=== PATIENT | male | born 1955 | race Caucasian/White ===

== ENCOUNTER → 2021-12-25 10:15 | Outpatient (CLI) | payer MEDICARE, BC, SELFPAY ==
[2021-12-25 12:14] LABS: Hematocrit 42.4 % (41-53); Hemoglobin 14.3 g/dL (13.5-17.5); Mean Corpuscular HGB Conc 33.8 % (30-36); Mean Corpuscular Hemoglobin 32.4 PG (26-34); Mean Corpuscular Volume 95.9 fL (80-100); Platelet Count 192 X10^3/uL (150-400); Red Blood Cell Count 4.42 X10^6/uL (4.5-5.9); Red Cell Distribution Width 13.6 % (11.6-14.8); White Blood Cell Count 3.9 X10^3/uL (4.5-11.0)
[2021-12-25 12:39] LABS: Alanine Aminotransferase 26 IU/L (<50); Albumin 4.1 g/dL (3.5-5.0); Albumin Globulin Ratio 1.3 (1.0-2.8); Alkaline Phosphatase 59 U/L (38-126); Aspartate Aminotransferase 36 IU/L (17-59); BUN Creatinine Ratio 12.8 (6-22); Blood Urea Nitrogen 14 mg/dL (9-20); Calcium 9.5 mg/dL (8.4-10.2); Carbon Dioxide 29 mmol/L (22-32); Chloride 105 mmol/L (98-107); Cholesterol 229 mg/dL (140-199); Estimated Glomerular Filt Rate > 60 mL/min (>60); Globulin 3.2 g/dL (1.7-4.1); Glucose 89 mg/dL (80-110); HDL Cholesterol 74 mg/dL (40-60); HEMOLYSIS < 15 (0-50); LDL Cholesterol Calculated 135 mg/dL (<100); Potassium 4.3 mmol/L (3.4-5.1); Sodium 141 mmol/L (137-145); Total Protein 7.3 g/dL (6.3-8.2); Triglycerides 101 mg/dL (35-150)
[2021-12-25 12:45] LABS: Free T3, Triiodothyronine Free 4.95 pg/mL (2.77-5.27); Free T4, Direct Thyroxine 1.11 ng/dL (0.78-2.19)
[2021-12-25 12:59] LABS: Thyroid Stimulating Hormone 2.69 uIU/mL (0.47-4.68)
[2021-12-26 17:23] LABS: Hep C Virus Ab w/Reflex Quant NEGATIVE s/c (NEGATIVE)
== END ==
PROVIDERS: Referring Provider Nurse Practitioner; Visit Provider Nurse Practitioner
DX: Z00.00 Encounter for general adult medical examination without abnormal findings (principal); Z11.59 Encounter for screening for other viral diseases; Z12.5 Encounter for screening for malignant neoplasm of prostate
CPT/HCPCS: 36415; 80053; 80061; 84439; 84443; 84481; 85027; 86803; G0103

== ENCOUNTER → 2022-01-15 09:16 | Outpatient (CLI) | payer MEDICARE, BC, SELFPAY ==
[2022-01-16 16:35] LABS: Fecal Immunochemical Test Negative (Negative)
== END ==
PROVIDERS: Referring Provider Nurse Practitioner; Visit Provider Nurse Practitioner
DX: Z12.11 Encounter for screening for malignant neoplasm of colon (principal)
CPT/HCPCS: 82274

== ENCOUNTER → 2022-01-22 10:14 | Outpatient (CLI) | payer MEDICARE, BC, SELFPAY ==
[2022-01-22 11:11] LABS: Hematocrit 42.1 % (41-53); Hemoglobin 14.3 g/dL (13.5-17.5); Mean Corpuscular HGB Conc 33.9 % (30-36); Mean Corpuscular Hemoglobin 32.5 PG (26-34); Platelet Count 177 X10^3/uL (150-400); Red Blood Cell Count 4.38 X10^6/uL (4.5-5.9); Red Cell Distribution Width 13.7 % (11.6-14.8); White Blood Cell Count 3.9 X10^3/uL (4.5-11.0)
[2022-01-22 11:16] LABS: Neutrophils Absolute Manual 2262 /uL (3000-5900); RBC Morphology Normal Morphology; Total Cells Counted 100
[2022-01-22 11:32] LABS: HEMOLYSIS < 15 (0-50)
[2022-01-22 11:36] LABS: HEMOLYSIS < 15 (0-50); Iron 75 ug/dL (49-181)
[2022-01-22 11:37] LABS: BUN Creatinine Ratio 16.4 (6-22); Blood Urea Nitrogen 18 mg/dL (9-20); Calcium 9.7 mg/dL (8.4-10.2); Carbon Dioxide 31 mmol/L (22-32); Chloride 105 mmol/L (98-107); Estimated Glomerular Filt Rate > 60 mL/min (>60); Glucose 86 mg/dL (80-110); Lactate Dehydrogenase 455 U/L (313-618); Potassium 4.5 mmol/L (3.4-5.1); Sodium 142 mmol/L (137-145)
[2022-01-22 11:48] LABS: Percent Iron Saturation 22 % (20-50); Total Iron Binding Capacity 345 ug/dL (261-462); Transferrin 281 mg/dL (206-381)
[2022-01-22 12:15] LABS: Ferritin 51 ng/mL (18-464)
[2022-01-22 12:46] LABS: Folate 13.7 ng/mL (2.76-20.0); Vitamin B12 726 pg/mL (239-931)
== END ==
PROVIDERS: Referring Provider Nurse Practitioner; Visit Provider Nurse Practitioner
DX: D50.9 Iron deficiency anemia, unspecified (principal)
CPT/HCPCS: 36415; 80048; 82607; 82728; 82746; 83540; 83550; 83615; 85025